=== PATIENT | female | born 1995 | race Caucasian/White ===

== ENCOUNTER 2017-05-21 11:29 | Inpatient (IN) ==
[2017-05-21] MEDS ORDERED: BRETHINE SUBQ PRN (19:46)
[2017-05-21] MEDS ORDERED: PEPCID IV PRN (19:46)
[2017-05-21] MEDS ORDERED: PEPCID PO PRN (19:46)
[2017-05-21] MEDS ORDERED: ZOFRAN IV PRN (19:46)
[2017-05-21] MEDS ORDERED: STADOL IV PRN ×2 (19:46)
[2017-05-21] MEDS ORDERED: AMBIEN PO PRN (19:46)
[2017-05-21] MEDS ORDERED: KEFZOL 1 GM/D5W 1 GM/50 ML IVPB IV PRN (19:46)
[2017-05-21] MEDS ORDERED: TYLENOL PO PRN (19:46)
[2017-05-21] MEDS: LR 1,000 ML IV ONE (20:30)
[2017-05-21 21:19] LABS: URINE SOURCE VOIDED
[2017-05-21 21:26] LABS: MANUAL DIFF NEEDED? NO
[2017-05-21 21:28] LABS: BASO% 0.2 % (0.0-0.8); EOS# 0.12 X1000 (0.0-0.7); EOS% 0.9 % (0.0-10.0); HEMATOCRIT 35.1 % (37.0-47.0); HEMOGLOBIN 12.3 g/dL (12.0-16.0); IMM GRAN% 1.5 % (0.0-0.5); LYMPH# 2.06 X1000 (1.2-3.4); LYMPH% 15.7 % (20.5-51.1); MCH 31.6 PG (27-31); MCV 90.2 FL (81-99); MONO# 1.05 X1000 (0.11-0.59); MPV 9.4 FL (7.4-10.4); NEUT% 73.7 % (42.2-75.2); PLT 213 X1000 (130-400); RBC 3.89 XMIL (4.2-5.4)
[2017-05-21 21:31] LABS: UR AMPHETAMINES QUAL NONE DETECTED (NONE DETECT); UR BARBITUATES QUAL NONE DETECTED (NONE DETECT); UR BENZODIAZEPIN QUAL NONE DETECTED (NONE DETECT); UR CANNABINOIDS QUAL NONE DETECTED (NONE DETECT); UR COCAINE QUAL NONE DETECTED (NONE DETECT); UR MDMA QUAL NONE DETECTED (NONE DETECT); UR METHADONE QUAL NONE DETECTED (NONE DETECT); UR METHAMPHETAMINE QUAL NONE DETECTED (NONE DETECT); UR OPIATES QUAL NONE DETECTED (NONE DETECT); UR OXYCODONE QUAL NONE DETECTED (NONE DETECT); UR PCP QUAL NONE DETECTED (NONE DETECT); UR TCA QUAL NONE DETECTED (NONE DETECT)
[2017-05-21 21:34] LABS: BILIRUBIN URINE NEGATIVE (NEGATIVE); BLOOD URINE NEGATIVE (NEGATIVE); CLARITY SL. CLOUDY (CLEAR); COLOR YELLOW; GLUCOSE URINE NEGATIVE (NEGATIVE); LEUKOCYTES URINE 1+ (NEGATIVE); NITRITE URINE NEGATIVE (NEGATIVE); PH URINE 6.5; PROTEIN URINE NEGATIVE (NEGATIVE); SP GRAVITY URINE 1.015; UROBILINOGEN URINE NORMAL
[2017-05-21] MEDS ORDERED: CYTOTEC PO ONE (23:00)
[2017-05-22] MEDS: STADOL IV PRN ×3 (01:00→04:51)
[2017-05-22] MEDS: CYTOTEC PO SCH ×2 (03:00→06:05)
[2017-05-22] MEDS ORDERED: NAROPIN 0.2% INJ ONE (05:34)
[2017-05-22] MEDS ORDERED: XYLOCAINE-MPF 1% INJ ONE (05:35)
[2017-05-22] MEDS ORDERED: MINERAL OIL MISC ONE (05:35)
[2017-05-22] MEDS ORDERED: PITOCIN 30 UNITS/LR 30 UNITS/500 ML IV.SOLN ONE (05:43)
[2017-05-22] MEDS ORDERED: FENTANYL-BUPIV-NS 2 MCG-0.1% 200 ML EPIDURAL SCH (05:45)
[2017-05-22] MEDS: LR 1,000 ML IV ONE (06:58)
[2017-05-22] MEDS ORDERED: PITOCIN 30 UNITS/LR 30 UNITS/500 ML IV.SOLN IV SCH (07:00)
[2017-05-22] MEDS ORDERED: PITOCIN IM PRN (08:49)
[2017-05-22] MEDS ORDERED: BOOSTRIX VACCINE IM ONE (08:49)
[2017-05-22] MEDS ORDERED: PITOCIN 30 UNITS/LR 30 UNITS/500 ML IV.SOLN IV ONE (08:49)
[2017-05-22] MEDS ORDERED: CYTOTEC PO PRN (08:49)
[2017-05-22] MEDS ORDERED: M-M-R II VACCINE SUBQ ONE (08:49)
[2017-05-22] MEDS ORDERED: HYDROXYZINE IM PRN (08:49)
[2017-05-22] MEDS ORDERED: PITOCIN 20 UNITS/LR 20 UNITS/1,000 ML IV.SOLN IV SCH (08:49)
[2017-05-22] MEDS ORDERED: MINERAL OIL PO PRN (08:49)
[2017-05-22] MEDS ORDERED: XYLOCAINE-MPF 1% INJ PRN (08:49)
[2017-05-22] MEDS ORDERED: BENADRYL IV PRN (08:49)
[2017-05-22] MEDS ORDERED: PERI MEDS (DERMOPLAST/NUPERCAINAL/TUCKS) MISC PRN (08:49)
[2017-05-22] MEDS: NORCO-10 PO PRN ×2 (09:15→14:54)
[2017-05-22] MEDS: MOTRIN PO PRN ×2 (09:16→21:39)
--- NOTE | 2017-05-22 11:02 | OPERATIVE NOTE ---
PROCEDURE DATE: 05/22/2017 The patient underwent sterile controlled spontaneous vaginal delivery of a viable female , weighing 6 pounds, 1 ounce with 's of 9 and 10. No nuchal cord, no dystocia. Cord doubly clamped and cut and handed off to the awaiting pediatric staff. Placenta was delivered spontaneously and intact. Uterus was firm with Pitocin and massage. Uterus, cervix, and vagina explored. Second-degree posterior midline laceration repaired with 2-0 chromic in the usual fashion. Hemostasis was noted. Patient tolerated the procedure well. cc: Muna Oliver MD MTDD
[2017-05-22] MEDS: HYDROXYZINE PO PRN ×2 (14:54→21:40)
[2017-05-22] MEDS ORDERED: FLUZONE QUAD 2017-2018 SYRINGE IM ONE (17:15)
[2017-05-22] MEDS: PERICOLACE PO SCH (20:38)
[2017-05-22] MEDS: AMBIEN PO PRN (21:39)
[2017-05-22] MEDS: NORCO-5 PO PRN (21:39)
[2017-05-23] MEDS: NORCO-5 PO PRN ×5 (04:20→22:32)
[2017-05-23] MEDS: BENADRYL PO PRN (04:20)
[2017-05-23 05:22] LABS: HEMATOCRIT 35.1 % (37.0-47.0); HEMOGLOBIN 11.9 g/dL (12.0-16.0); MCHC 33.9 g/dL (33-37); MCV 91.4 FL (81-99); MPV 9.7 FL (7.4-10.4); RBC 3.84 XMIL (4.2-5.4)
[2017-05-23] MEDS: MOTRIN PO PRN ×2 (07:56→17:54)
[2017-05-23] MEDS: NORCO-10 PO PRN (17:55)
[2017-05-23] MEDS: MYLICON PO PRN (18:58)
[2017-05-23] MEDS ORDERED: EPIFOAM FOAM TOP PRN (18:59)
[2017-05-23] MEDS: PERICOLACE PO SCH (20:08)
[2017-05-23] MEDS: AMBIEN PO PRN (22:31)
[2017-05-24] MEDS: NORCO-5 PO PRN (03:38)
[2017-05-24] MEDS: MYLICON PO PRN ×2 (03:38→07:49)
[2017-05-24] MEDS: BENADRYL PO PRN (03:38)
[2017-05-24] MEDS: NORCO-10 PO PRN ×2 (07:49→11:50)
[2017-05-24 07:53] VITALS: BP 134/68
== END 2017-05-24 12:20 | disposition home or self-care (01) ==
LOC: P.LD 19:44 → P.WC 05-22 12:15
PROVIDERS: ADMIT Obstetrics & Gynecology; ATTEND Obstetrics & Gynecology